=== PATIENT | male | born 1985 | race African-American/Black ===

== ENCOUNTER 2017-04-13 12:55 | Emergency (ER) | payer OTHER ==
[~2017-04-13] VITALS: Ht 190.5 cm; Wt 100.0 kg
[2017-04-13 15:25] VITALS: BP 122/80
== END 2017-04-13 15:30 | disposition home or self-care (01) ==
LOC: EMS 12:59
DX: J40 Bronchitis, not specified as acute or chronic (principal); F17.210 Nicotine dependence, cigarettes, uncomplicated
CPT/HCPCS: 99283

== ENCOUNTER 2017-06-05 14:51 | Emergency (ER) | payer OTHER ==
[~2017-06-05] VITALS: Ht 170.2 cm; Wt 95.5 kg
[2017-06-05 15:25] VITALS: BP 163/98
== END 2017-06-05 16:05 | disposition home or self-care (01) ==
LOC: EMS 14:53
DX: J01.90 Acute sinusitis, unspecified (principal); R03.0 Elevated blood-pressure reading, without diagnosis of hypertension; F17.210 Nicotine dependence, cigarettes, uncomplicated
CPT/HCPCS: 99283